=== PATIENT | female | born 1995 | race African-American/Black ===

== ENCOUNTER 2016-10-29 22:48 | Emergency (ER) | payer OTHER ==
--- NOTE | ~2016-10-29 | EKG ---
PATIENT: ADBIEL ALVES UNIT #: [id number] Ventricular Rate: 116 BPM Atrial Rate: 116 BPM P-R Interval: 172 ms QRS Duration: 78 ms Q-T Interval: 328 ms QTC Calculation(Bezet): 455 ms P [place]: 20 degrees Calculated R [place]: 34 degrees Calculated T [place]: 51 degrees Diagnosis Line: Sinus tachycardia Diagnosis Line: Nonspecific T wave abnormality Diagnosis Line: Abnormal ECG Diagnosis Line: No previous ECGs available Diagnosis Line: Confirmed by BARBARA REYES MD ([id number]) on Diagnosis Line: 10/31/2016 2:52:23 PM INTERPRETING MD: AMY LEIGH
--- NOTE | ~2016-10-29 | CT16 ---
[facility] A Service [facility] RADIOLOGY TEXT RESULTS PATIENT: ABDIEL ALVES LOCATION: SED : 93 UNIT #: [id number] AGE: [address]: Danny Deshpande MD SEX: F ORDER DR: [id number] [address] [address] [id number] E MR#: [id number] Acc #: [id number] NAME: ABDIEL ALVES. : 1995 SEX: F STUDY DATE/TIME: 10/29/2016 23:17 UNIT: SED ROOM: STUDY DESCRIPTION: CT Angio Chest for PE Attending Physician: Danny Deshpande M.D. Ordering Physician: Danny Deshpande M.D. Primary Care Physician: No Primary Care Physician MEDICAL IMAGING REPORT This report is preliminary unless electronic signature is present. EXAM CTA chest with contrast PE protocol Date: 10/29/2016 at 2317 HISTORY 20-year-old female with complaints of chest pain for 1 week. D-dimer 239. Gastroesophageal reflux disease. COMPARISON None. TECHNIQUE 2 mm axial images through the chest after IV contrast administration. 3-D coronal MIP reformatted images were obtained. Sagittal reformatted images were obtained. This CT exam was performed with one or more of the following radiation dose reduction techniques: Automatic exposure control, adjustment of mA and/or kV according to patient size, and iterative reconstruction. FINDINGS A few of the images are mildly degraded by respiratory motion. No pulmonary embolism, aortic aneurysm or aortic dissection is seen. Small amount of residual thymic tissue is present within the anterior mediastinum. No pericardial effusion. No pleural effusion. Clear lungs. No pneumothorax. Included upper abdominal organs are within normal limits. Some of the images of the upper abdomen are mildly degraded by respiratory motion. No acute osseous abnormalities are identified. [facility] A Service [facility] RADIOLOGY TEXT RESULTS PATIENT: ABDIEL ALVES LOCATION: SED : 93 UNIT #: [id number] AGE: [address]: Danny Deshpande MD SEX: F ORDER DR: IMPRESSION No acute chest findings. No evidence of pulmonary embolism, aortic aneurysm or aortic dissection. Clear lungs. Dictated by... Oly Hinds M.D. THIS IS AN ELECTRONICALLY VERIFIED REPORT Oly Hinds M.D. at 11/03/2016 8:38 AM HARLAN/herberth TD: 10/30/2016 09:47 JOB #: [id number] MEDICAL IMAGING REPORT Page 1 of 1
[2016-10-29 21:37] LABS: INFLUENZA A NEG (NEG); INFLUENZA B NEG (NEG)
[2016-10-29 22:14] LABS: HEMATOCRIT 40.1 % (35.0-45.0); HEMOGLOBIN 13.2 gm/dL (12.0-16.0); MEAN CELL VOLUME 85.5 FL (83-96); MEAN CORPUSCULAR HEMOGLOBIN 28.1 PG (28-34); MEAN CORPUSCULAR HGB CONC 32.9 g/dL (30-36); MEAN PLATELET VOLUME 9.1 FL (6.5-11.5); RED BLOOD COUNT 4.7 X10e (3.90-5.30); RED CELL DISTRIBUTION WIDTH 13.5 % (11.0-15.5); WHITE BLOOD COUNT 8.5 X10e3 (4.0-10.5)
[2016-10-29 22:26] LABS: BLOOD UREA NITROGEN 15 mg/dL (9-23); BUN/CREATININE RATIO 16.66; CALCIUM SERUM 9.1 mg/dL (8.4-10.2); CARBON DIOXIDE 25 mmol/L (22-31); CHLORIDE 102 mmol/L (100-111); CREATININE SERUM 0.9 mg/dL (0.6-1.4); GLOM FILT RATE Estimated ABOVE60 mL/min (>60); GLUCOSE FASTING 103 mg/dL (70-110); POTASSIUM 4.1 mmol/L (3.5-5.1); SODIUM 133 mmol/L (135-145)
[~2016-10-29 22:48] MED LIST: BENTYL20 M1 PO; NO MEDICATIONS; PROTONIX PO; ROBAXIN 750750 M1 PO; VALTREX PO; VOLTAREN75 MG PO; ZANTAC; ZOFRANODT PO
[2016-10-30 00:11] LABS: POC - CKMB <1.0 ng/mL (0.0-7.9)
[2016-10-30 00:12] LABS: POC - MYOGLOBIN 48.7 ng/mL (0.0-169.0); POC - TROPONIN <0.05 ng/mL (<=0.05)
== END 2016-10-30 00:35 | disposition home or self-care (01) ==
LOC: SED 22:48
PROVIDERS: Emergency Medicine
DX: R07.9 Chest pain, unspecified (principal); F41.9 Anxiety disorder, unspecified
CPT/HCPCS: 71275; 80048; 82553; 83874; 84484; 84703; 85027; 85379; 87804; 93005; 99284; Q9967